=== PATIENT | female | born 1990 | race Hispanic/Latino ===

== ENCOUNTER 2017-08-28 15:38 | Emergency (ER) | payer OTHER, MEDICAID ==
[2017-08-28 15:43] VITALS: BP 117/66; PULSE 82; RESP 16; TEMP 98.2; O2SAT 100
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
== END 2017-08-28 18:31 | disposition home or self-care (01) ==
LOC: H.ER 15:38
DX: R51 Headache (principal); V43.62XA Car passenger injured in collision with other type car in traffic accident, initial encounter; Y92.410 Unspecified street and highway as the place of occurrence of the external cause

== ENCOUNTER 2017-10-04 18:54 | Emergency (ER) | payer OTHER, MEDICAID ==
[2017-10-04 19:00] VITALS: BP 121/76; PULSE 91; RESP 16; TEMP 98.4; O2SAT 100
[2017-10-04] MEDS ORDERED: Lidocaine 5% Patch TD STA (20:12)
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
== END 2017-10-04 20:50 | disposition home or self-care (01) ==
LOC: H.ER 18:54
DX: M54.5 Low back pain (principal)
CPT/HCPCS: 81025; 96372; 99283; J1885

== ENCOUNTER 2018-10-12 19:23 | Emergency (ER) | payer MEDICAID, OTHER ==
[2018-10-12 19:30] VITALS: BP 113/69; PULSE 87; RESP 18; TEMP 98.5; O2SAT 100; BMI 20.9
--- NOTE | 2018-10-12 20:37 | ED PDOC ---
HPI: CCC, URI, Sore Throat Time Seen by Provider: 10/12/18 19:44 Chief Complaint (Nursing): Headache Chief Complaint (Provider): ear pain History Per: Patient History/Exam Limitations: no limitations Onset/Duration Of Symptoms: Days (2x) Current Symptoms Are (Timing): Still Present Associated Symptoms: Fever (subjective), Cough, Sinus Drainage (rhinorrhea) Ear Symptoms: Left: Ear Pain (with mild decrease in hearing and a buzz like sound) Severity: Moderate Additional Complaint(s): 27 year old female with no past medical history presents to the ED for an evaluation of left ear pain that started yesterday. Patient states that the pain radiates to the left side of her face and head. Patient states that the pain is constant and worsening, and has an associated (mild) decrease in hearing and a buzzing in her left ear, a subjective fever yesterday, and a sore throat last week which as since improved. Patient denies having a cough and rhinorrhea. Patient denies swimming recently, going to the beach, or getting water in her ear. PMD: Melany Eubanks MD Past Medical History Reviewed: Historical Data, Nursing Documentation, Vital Signs Vital Signs: Last Vital Signs Temp 98.5 F 10/12/18 19:27 Pulse 87 10/12/18 19:27 Resp 18 10/12/18 19:27 BP 113/69 10/12/18 19:27 Pulse Ox 100 10/12/18 19:27 [place] Report Viewed: Yes Primary Care Provider: Melany Eubanks - Medical History PMH: Anemia (taking iron pills) - Family History Family History: States: Other Other Family History: cancer - Social History Current smoker - smoking cessation education provided: No - Immunization History Hx Tetanus Toxoid Vaccination: No Hx Influenza Vaccination: No Hx Pneumococcal Vaccination: No - Home Medications Home Medications: Ambulatory Orders Medication Instructions Recorded Doxylamine/Pyridoxine HCl (B6) 1 each PO DAILY PRN #20 tablet. 08/17/15 [Reinaldo Roger 10-10 mg Tablet] Famotidine [Pepcid] 40 mg PO DAILY PRN #14 tab 08/17/15 Vits96/Iron Fum/Folic 1 tab PO DAILY #100 tab 08/17/15 [] Cyclobenzaprine [Cyclobenzaprine 10 mg PO Q8 PRN #30 tab 10/04/17 HCl] Lidocaine 5% [Lidoderm] 1 ea TD DAILY PRN #10 patch 10/04/17 Naproxen [Naprosyn] 500 mg PO BID PRN #30 tab 10/04/17 Amoxicillin/Clavulanate [Augmentin 1 tab PO BID #14 tab 10/12/18 875 MG-125 MG] Ibuprofen [Motrin Tab] 600 mg PO Q8 PRN #30 tab 10/12/18 - Allergies Allergies/Adverse Reactions: Allergies Allergy/AdvReac Type Severity Reaction Status Date / Time No Known Allergies Allergy Verified 08/28/17 15:40 Review of Systems ROS Statement: Except As Marked, All Systems Reviewed And Found Negative Constitutional: Positive for: Fever (subjective) ENT: Positive for: Ear Pain (left ear pain, radiates to left side of face and head, associated with mild decrease in hearing and a buzzing sound), Throat Pain (last week, improved). Negative for: Nose Discharge (rhinorrhea) Respiratory: Negative for: Cough Physical Exam - Reviewed Nursing Documentation Reviewed: Yes Vital Signs Reviewed: Yes - Physical Exam Appears: Positive for: Well, Non-toxic, No Acute Distress Head Exam: Positive for: ATRAUMATIC, NORMOCEPHALIC Skin: Positive for: Warm, Dry Eye Exam: Positive for: EOMI, PERRL ENT: Positive for: Pharynx Is (clear), TM Is/Are (left TM retracted and erythematous with abnormal light reflex. Right TM: normal), Other (moist mucous membranes) Neck: Positive for: Painless ROM, Supple Lymphatic: Negative for: Adenopathy Neurological/Psych: Positive for: Awake, Alert, Oriented (3x) - ECG O2 Sat by Pulse Oximetry: 100 (RA) Pulse Ox Interpretation: Normal Medical Decision Making Medical Decision Makin:44 Initial impression: 27 year old female with otitis media Plan: Patient is medically stable, and requires no further treatment in the ED at this time. Patient will be discharged home with Rx for augmentin and motrin. Counseling was provided and all questions were answered regarding diagnosis and need for follow up with PMD. There is agreement to discharge plan. Return if symptoms persist or worsen. Scribe Attestation: Documented by Shantell Rosario, acting as a scribe for Zainab Burch MD. Provider Scribe Attestation: All medical record entries made by the Scribe were at my direction and personally dictated by me. I have reviewed the chart and agree that the record accurately reflects my personal performance of the history, physical exam, medical decision making, and the department course for this patient. I have also personally directed, reviewed, and agree with the discharge instructions and disposition. Disposition - Clinical Impression Clinical Impression: Otitis media Counseled Patient/Family Regarding: Studies Performed, Diagnosis, Need For Followup, Rx Given - Disposition Referrals: Carlos Miller MD [Staff Provider] - 10/13/18 (CALL TOMORROW TO SETUP FOLLOWUP APPOINTMENT WITHIN A WEEK) Disposition: Routine/Home Disposition Time: 20:36 Condition: STABLE Prescriptions: Amoxicillin/Clavulanate [Augmentin 875 MG-125 MG] 1 tab PO BID #14 tab Ibuprofen [Motrin Tab] 600 mg PO Q8 PRN #30 tab PRN Reason: Pain, Moderate (4-7) Instructions: Ear Infections (Otitis Media) (DC) Forms: [facility] ED School/Work Excuse
== END 2018-10-12 20:37 | disposition home or self-care (01) ==
LOC: H.ER 19:23
DX: H66.92 Otitis media, unspecified, left ear (principal)